=== PATIENT | female | born 1995 | race Asian ===

== ENCOUNTER 2018-11-17 08:56 | Outpatient (CLI) | payer OTHER ==
--- NOTE | 2018-11-17 09:21 | RAD ---
2 views of the chest: 11/17/2018 COMPARISON: None HISTORY: Shortness of breath FINDINGS: Lungs are clear. Heart and mediastinal contours are unremarkable. Pression: No acute findings.
== END 2018-11-17 08:57 | disposition home or self-care (01) ==
LOC: RAD 08:56
PROVIDERS: ATTEND Internal Medicine Critical Care Medicine
DX: R06.00 Dyspnea, unspecified (principal)
CPT/HCPCS: 71046